=== PATIENT | female | born 1940 | race Caucasian/White ===

== ENCOUNTER → 2016-09-16 | Outpatient (CLI) | payer OTHER, BC ==
[~2016-09-16] MED LIST: ALLOPURINOL300 MG PO; AMLODIPINE BESY10 MG PO; ATORVASTATIN CA20 MG PO; LO-DOSE ASPIRIN81 M2 PO; METOPROLOL TART50 MG PO; PERCOCET 5/31 TABLET PO; TRAMADOL HCL50 MG PO; VITAMIN D2000 UNI1 PO
== END | disposition home or self-care (01) ==
LOC: RAD 12:26
DX: M85.852 Other specified disorders of bone density and structure, left thigh (principal)
CPT/HCPCS: 73552

== ENCOUNTER 2017-08-12 17:31 | Inpatient (IN) | payer OTHER, BC ==
[~2017-08-12] VITALS: Ht 170.2 cm; Wt 66.4 kg
[2017-08-12 18:28] LABS: BASOPHIL (%) 0.2 % (0-1); EOSINOPHIL (%) 0.3 % (0-5); HEMATOCRIT 34.9 % (36.0-46.0); HEMOGLOBIN 12.4 G/DL (11.9-15.5); IMMATURE GRANULOCYTE (%) 0.2 % (0.0-0.7); LYMPHOCYTE (%) 19.6 % (15-42); LYMPHOCYTE COUNT 1.3 K/uL (1.0-2.8); MCH 32.9 PG (29.0-34.0); MCHC 35.5 G/DL (30.0-36.0); MCV 92.6 FL (83-99); MONOCYTE (%) 7.1 % (3-12); MONOCYTE COUNT 0.5 K/uL (0-0.8); NEUTROPHIL (%) 72.6 % (45-76); NEUTROPHIL COUNT 4.6 K/uL (1.8-6.4); PLATELET COUNT 162 K/uL (156-360); RBC DIS.WIDTH-CV 12.2 % (11.8-14.6); RBC DIS.WIDTH-SD 41.7 % (39-53); RED BLOOD COUNT 3.77 M/uL (3.80-5.20); WHITE BLOOD COUNT 6.4 K/uL (4.1-10.2)
[2017-08-12 18:36] LABS: CHLORIDE 97 mEq/L (99-109); POTASSIUM 4.3 mEq/L (3.7-5.4); SODIUM 131 mEq/L (136-147)
[2017-08-12 18:38] LABS: GLUCOSE 103 mg/dL (70-99); PTT 28.4 SEC (25-37)
[2017-08-12 18:42] LABS: CREATININE 1.2 mg/dL (0.6-1.3); GFR ESTIMATE (CALCULATED) 46 mL/min/
[2017-08-12 18:43] LABS: UREA NITROGEN (BUN) 25 mg/dL (9-23)
[2017-08-12 19:06] LABS: HDL CHOLESTEROL 60 MG/DL (Desirable>=50); LDL CHOLESTEROL 62 mg/dL (Desirable<100); NON-HDL CHOLESTEROL 74 mg/dL (Desirable<160); TOTAL CHOLESTEROL 134 mg/dL (Desirable<200); TRIGLYCERIDES 61 MG/DL (Normal: <150)
[2017-08-12 20:51] LABS: TROP-I INTERPRETATION NEGATIVE; TROPONIN-I 0.05 ng/mL (0.0-0.30)
[2017-08-12 21:22] LABS: MAGNESIUM 2.1 mg/dl (1.3-2.7)
[2017-08-12 22:26] VITALS: BP 196/84
[2017-08-12 22:27] LABS: ACETAMINOPHEN (TYLENOL) < 10 MCG/ML (10-30); SERUM ETHYL ALCOHOL < 10 mg/dL
[2017-08-13 02:46] LABS: APPEARANCE CLEAR ((CLEAR)); BILIRUBIN NEGATIVE; BLOOD NEGATIVE; COLOR YELLOW ((YELLOW)); GLUCOSE (STRIP) NEGATIVE; KETONES NEGATIVE; LEUKOCYTES TRACE; NITRITE NEGATIVE; PROTEIN (STRIP) 30; SPECIFIC GRAVITY 1.019 (1.000-1.030); UROBILINOGEN 0.2 MG/DL (0.2-1.0)
[2017-08-13 02:51] LABS: BACTERIA NONE SEEN /HPF; EPITHELIAL CELLS RARE /HPF; MUCUS NONE SEEN /LPF; RED BLOOD CELLS NONE SEEN /HPF (0-5); UCUL ADDED? NO; WHITE BLOOD CELLS 0-5 /HPF (0-5)
[2017-08-13 04:35] LABS: BENZODIAZEPINES, URINE SCREEN Negative (200 ng/mL)
[2017-08-13 07:27] VITALS: BP 181/81
[2017-08-13 09:12] LABS: HEMOGLOBIN A1c (GLYCOHEMOGLOB) 5.2 % (Below 5.7)
[2017-08-13 11:14] VITALS: BP 151/76
[2017-08-13] MEDS ORDERED: METOPROLOL TART50 MG PO (12:40)
[2017-08-13] MEDS ORDERED: ATORVASTATIN CA10 MG PO (12:40)
[2017-08-13] MEDS ORDERED: DICYCLOMINE HCL20 MG PO (12:41)
[2017-08-13] MEDS ORDERED: TRAMADOL HCL50 MG PO (12:41)
[2017-08-13] MEDS ORDERED: AMLODIPINE BESY10 MG PO (12:42)
[2017-08-13] MEDS ORDERED: VALSARTAN-HCTZ1 EAC3 PO (12:43)
[2017-08-13] MEDS ORDERED: DESIPRAMINE HCL25 MG PO (12:44)
[2017-08-13] MEDS ORDERED: QUESTRAN PACKET4 GM PO (12:44)
[2017-08-13] MEDS ORDERED: ALLOPURINOL300 MG PO (12:45)
[2017-08-13 15:08] VITALS: BP 144/83
[2017-08-13 19:26] VITALS: BP 194/75
[2017-08-13 23:33] VITALS: BP 178/70
[2017-08-14 04:07] VITALS: BP 172/70
[2017-08-14 07:30] VITALS: BP 182/80
[2017-08-14 11:08] VITALS: BP 204/80
[2017-08-14 15:21] LABS: C DIFF TOXIN NEGATIVE (NEGATIVE)
[2017-08-14 15:38] VITALS: BP 171/72
[2017-08-14 19:04] VITALS: BP 179/77
[2017-08-15 00:41] VITALS: BP 150/52
[2017-08-15 04:39] VITALS: BP 178/68
[2017-08-15 07:46] VITALS: BP 188/58
[2017-08-15 09:23] VITALS: BP 148/58
[2017-08-15 12:00] VITALS: BP 140/58
[2017-08-15 12:07] LABS: CHLORIDE 100 MEQ/L (99-109); GFR ESTIMATE (CALCULATED) 29 mL/min/; GLUCOSE 143 mg/dL (70-99); POTASSIUM 3.7 MEQ/L (3.7-5.4); SODIUM 130 MEQ/L (136-147); UREA NITROGEN (BUN) 31 mg/dL (9-23)
[2017-08-15 12:14] LABS: CREATININE 1.8 MG/DL (0.6-1.3)
[2017-08-15] MEDS ORDERED: FOLIC ACID1 MG PO (12:43)
[2017-08-15] MEDS ORDERED: LOPRESSOR50 MG PO (12:43)
[2017-08-15] MEDS ORDERED: THERAGRAN1 TABLET PO (12:43)
[2017-08-15] MEDS ORDERED: APRESOLINE25 MG PO (12:43)
[2017-08-15] MEDS ORDERED: ASPIR-LOW81 MG PO (12:43)
[2017-08-15] MEDS ORDERED: Thiamine,Vitamin B1 PO (12:43)
[2017-08-15] MEDS ORDERED: ATORVASTATIN CA80 MG PO (12:43)
[2017-08-15] MEDS ORDERED: ATIVAN0.5 MG PO (12:43)
== END 2017-08-15 13:45 | disposition home or self-care (01) | DRG 69 ==
LOC: EME 17:31 → 5SOUTH 19:55 → EDOF 19:55 → ENRESERV 19:57 → 5SOUTH 22:19 → ENPENDDIS 08-15 → 5SOUTH 08-15 13:45
PROVIDERS: Emergency Medicine; Hospitalist; Internal Medicine
DX: G45.9 Transient cerebral ischemic attack, unspecified (principal); R47.01 Aphasia; F10.230 Alcohol dependence with withdrawal, uncomplicated; E86.0 Dehydration; I10 Essential (primary) hypertension; F32.9 Major depressive disorder, single episode, unspecified; M10.9 Gout, unspecified; E78.5 Hyperlipidemia, unspecified; K58.9 Irritable bowel syndrome, unspecified; Z85.43 Personal history of malignant neoplasm of ovary
CPT/HCPCS: 70450; 70496; 70498; 70551; 80048; 80061; 80306 90; 81003; 83036; 83735; 84484; 85025; 85610; 85730; 87493; 92523 GN; 93306; 97127 GN; 99281; 99285; G0480; J0360; J7030

== ENCOUNTER 2017-09-09 14:05 | Inpatient (IN) | payer OTHER, BC ==
[~2017-09-09] VITALS: Ht 165.1 cm; Wt 64.9 kg
[~2017-09-09 14:05] MED LIST changes: +APRESOLINE25 MG PO; +ASPIR-LOW81 MG PO; +ATIVAN0.5 MG PO; +ATORVASTATIN CA10 MG PO; +ATORVASTATIN CA80 MG PO; +DESIPRAMINE HCL25 MG PO; +DICYCLOMINE HCL20 MG PO; +FOLIC ACID1 MG PO; +LOPRESSOR50 MG PO; +MULTIVITAMIN1 EAC2 PO; +QUESTRAN PACKET4 GM PO; +THERAGRAN1 TABLET PO; +Thiamine,Vitamin B1 PO; +VALSARTAN-HCTZ1 EAC3 PO; +VITAMIN B-1250 MG PO
[2017-09-09 15:11] LABS: HEMATOCRIT 21.9 % (36.0-46.0); HEMOGLOBIN 7.5 G/DL (11.9-15.5); MCH 31.8 PG (29.0-34.0); MCHC 34.2 G/DL (30.0-36.0); MCV 92.8 FL (83-99); PLATELET COUNT 300 K/uL (156-360); RBC DIS.WIDTH-CV 14.6 % (11.8-14.6); RBC DIS.WIDTH-SD 48.9 % (39-53); RED BLOOD COUNT 2.36 M/uL (3.80-5.20)
[2017-09-09 15:23] LABS: CHLORIDE 89 mEq/L (99-109); POTASSIUM 4.1 mEq/L (3.7-5.4); SODIUM 122 mEq/L (136-147)
[2017-09-09 15:24] LABS: GLUCOSE 111 mg/dL (70-99)
[2017-09-09 15:28] LABS: GFR ESTIMATE (CALCULATED) 16 mL/min/
[2017-09-09 15:29] LABS: UREA NITROGEN (BUN) 73 mg/dL (9-23)
[2017-09-09 15:36] LABS: TROP-I INTERPRETATION NEGATIVE; TROPONIN-I 0.05 ng/mL (0.0-0.30)
[2017-09-09] MEDS ORDERED: NORVASC5 MG PO (16:25)
[2017-09-09] MEDS ORDERED: K-DUR20 MEQ PO (16:27)
[2017-09-09] MEDS ORDERED: LASIX80 MG PO (16:28)
[2017-09-09] MEDS ORDERED: ALBUTEROL2.5 MG/3 M IH (16:30)
[2017-09-09] MEDS ORDERED: METOLAZONE10 MG PO (16:31)
[2017-09-09 18:56] LABS: INTER. NORMALIZED RATIO 1.1
[2017-09-09 18:58] LABS: PTT 31.2 SEC (25-37)
[2017-09-09 20:06] VITALS: BP 168/74
[2017-09-09 21:54] VITALS: BP 165/67
[2017-09-09 22:25] VITALS: BP 150/60
[2017-09-09 23:40] VITALS: BP 155/85
[2017-09-10] VITALS (14 sets, daily range): BP systolic 130–174; BP diastolic 58–78
[2017-09-10 02:28] LABS: HEMATOCRIT 22.1 % (36.0-46.0); HEMOGLOBIN 7.7 G/DL (11.9-15.5); MCV 90.2 FL (83-99)
[2017-09-10 06:17] LABS: HEMATOCRIT 21.9 % (36.0-46.0); HEMOGLOBIN 7.5 G/DL (11.9-15.5); MCHC 34.2 G/DL (30.0-36.0); MCV 90.5 FL (83-99); PLATELET COUNT 277 K/uL (156-360); RBC DIS.WIDTH-CV 14.5 % (11.8-14.6); RBC DIS.WIDTH-SD 47.7 % (39-53); RED BLOOD COUNT 2.42 M/uL (3.80-5.20); WHITE BLOOD COUNT 5.2 K/uL (4.1-10.2)
[2017-09-10 06:41] LABS: ALBUMIN 3.1 G/DL (3.2-4.8); ALKALINE PHOSPHATASE 96 IU/L (3-129); ALT (GPT) 20 IU/L (3-49); AST (GOT) 20 IU/L (2-34); CHLORIDE 88 MEQ/L (99-109); DIRECT BILIRUBIN 0.2 mg/dL (0.0-0.3); GFR ESTIMATE (CALCULATED) 20 mL/min/; GLUCOSE 100 mg/dL (70-99); POTASSIUM 3.4 MEQ/L (3.7-5.4); SODIUM 122 MEQ/L (136-147); TOTAL BILIRUBIN 0.7 MG/DL (0.0-1.0); TOTAL PROTEIN 5.8 G/DL (6.4-8.3); UREA NITROGEN (BUN) 72 mg/dL (9-23)
[2017-09-10 06:43] LABS: CREATININE 2.5 MG/DL (0.6-1.3)
[2017-09-10 13:17] LABS: BASE EXCESS -2.1 mEq/L (-3 to +3); BICARBONATE 21.3 mEq/L (22-26); CARBOXY HGB 2.5 % (0-5); METHEMOGLOBIN 1.1 % (0-1.5); PCO2 30 mm Hg (35-45); PO2 90 mm Hg (80-100); pH 7.46 (7.35-7.45)
[2017-09-10 13:18] LABS: COMMENTS - BLOOD GASES A+C+; DEVICE NC; O2 FLOW 2 L/MIN; SITE RR
[2017-09-10 21:00] LABS: STOOL OCCULT BLD 1ST SPECIMEN NEGATIVE
[2017-09-11 04:38] VITALS: BP 178/68
[2017-09-11 06:05] VITALS: BP 184/115
[2017-09-11 06:43] LABS: HEMATOCRIT 29.1 % (36.0-46.0); HEMOGLOBIN 10.1 G/DL (11.9-15.5); MCH 29.8 PG (29.0-34.0); MCHC 34.7 G/DL (30.0-36.0); MCV 85.8 FL (83-99); PLATELET COUNT 296 K/uL (156-360); RBC DIS.WIDTH-CV 17.4 % (11.8-14.6); RBC DIS.WIDTH-SD 55.1 % (39-53); RED BLOOD COUNT 3.39 M/uL (3.80-5.20); WHITE BLOOD COUNT 8.6 K/uL (4.1-10.2)
[2017-09-11 07:06] LABS: CHLORIDE 88 MEQ/L (99-109); CREATININE 2.3 MG/DL (0.6-1.3); GFR ESTIMATE (CALCULATED) 22 mL/min/; GLUCOSE 98 mg/dL (70-99); POTASSIUM 3.4 MEQ/L (3.7-5.4); SODIUM 123 MEQ/L (136-147); UREA NITROGEN (BUN) 72 mg/dL (9-23)
[2017-09-11 07:28] VITALS: BP 159/73
[2017-09-11 12:07] LABS: CREATINE KINASE 49 IU/L (1-294)
[2017-09-11 19:27] VITALS: BP 135/76
[2017-09-11 23:22] VITALS: BP 140/64
[2017-09-12 03:47] VITALS: BP 139/68
[2017-09-12 06:36] LABS: BASOPHIL (%) 0.6 % (0-1); EOSINOPHIL (%) 1.9 % (0-5); EOSINOPHIL COUNT 0.1 K/uL (0-0.3); HEMATOCRIT 28.7 % (36.0-46.0); IMMATURE GRANULOCYTE (%) 0.2 % (0.0-0.7); LYMPHOCYTE (%) 8.7 % (15-42); LYMPHOCYTE COUNT 0.4 K/uL (1.0-2.8); MCH 30.2 PG (29.0-34.0); MCHC 34.8 G/DL (30.0-36.0); MCV 86.7 FL (83-99); MONOCYTE (%) 9.9 % (3-12); MONOCYTE COUNT 0.5 K/uL (0-0.8); NEUTROPHIL (%) 78.7 % (45-76); NEUTROPHIL COUNT 3.7 K/uL (1.8-6.4); NRBC (%) 0.4 /100 WBC (0-0); PLATELET COUNT 257 K/uL (156-360); RBC DIS.WIDTH-CV 17.2 % (11.8-14.6); RBC DIS.WIDTH-SD 54.9 % (39-53); RED BLOOD COUNT 3.31 M/uL (3.80-5.20); WHITE BLOOD COUNT 4.7 K/uL (4.1-10.2)
[2017-09-12 07:13] LABS: CHLORIDE 89 MEQ/L (99-109); CREATININE 2.7 MG/DL (0.6-1.3); GFR ESTIMATE (CALCULATED) 18 mL/min/; GLUCOSE 106 mg/dL (70-99); MAGNESIUM 2.1 mg/dl (1.3-2.7); PHOSPHORUS 5.3 mg/dL (2.5-4.9); POTASSIUM 3.8 MEQ/L (3.7-5.4); SODIUM 123 MEQ/L (136-147); UREA NITROGEN (BUN) 78 mg/dL (9-23)
[2017-09-12 07:53] VITALS: BP 164/50
[2017-09-12 11:44] VITALS: BP 132/48
[2017-09-12 16:00] VITALS: BP 144/48
[2017-09-12 19:55] VITALS: BP 151/55
[2017-09-13] VITALS (7 sets, daily range): BP systolic 122–165; BP diastolic 42–72
[2017-09-13 06:29] LABS: ALBUMIN 3.2 G/DL (3.2-4.8); CHLORIDE 88 MEQ/L (99-109); CREATININE 2.8 MG/DL (0.6-1.3); GFR ESTIMATE (CALCULATED) 17 mL/min/; GLUCOSE 112 mg/dL (70-99); PHOSPHORUS 6.1 mg/dL (2.5-4.9); POTASSIUM 3.7 MEQ/L (3.7-5.4); SODIUM 122 MEQ/L (136-147); UREA NITROGEN (BUN) 86 mg/dL (9-23)
[2017-09-14 06:33] LABS: ALBUMIN 3.3 G/DL (3.2-4.8); CHLORIDE 88 MEQ/L (99-109); CREATININE 2.4 MG/DL (0.6-1.3); GFR ESTIMATE (CALCULATED) 21 mL/min/; GLUCOSE 124 mg/dL (70-99); PHOSPHORUS 5.6 mg/dL (2.5-4.9); POTASSIUM 3.3 MEQ/L (3.7-5.4); SODIUM 120 MEQ/L (136-147); UREA NITROGEN (BUN) 87 mg/dL (9-23)
[2017-09-14 07:24] VITALS: BP 149/67
[2017-09-14 11:01] VITALS: BP 168/75
[2017-09-14 15:46] LABS: Metanephrine,Plasma 47 pg/mL (<=57)
[2017-09-14 18:36] LABS: CHLORIDE 93 MEQ/L (99-109); GFR ESTIMATE (CALCULATED) 26 mL/min/; GLUCOSE 106 mg/dL (70-99); POTASSIUM 3.4 MEQ/L (3.7-5.4); SODIUM 124 MEQ/L (136-147); UREA NITROGEN (BUN) 85 mg/dL (9-23)
[2017-09-14 19:02] VITALS: BP 136/62
[2017-09-14 21:08] LABS: CHLORIDE 96 MEQ/L (99-109); POTASSIUM 3.4 MEQ/L (3.7-5.4); SODIUM 128 MEQ/L (136-147)
[2017-09-14 21:14] LABS: GFR ESTIMATE (CALCULATED) 26 mL/min/; GLUCOSE 154 mg/dL (70-99); UREA NITROGEN (BUN) 76 mg/dL (9-23)
[2017-09-15] VITALS (8 sets, daily range): BP systolic 114–160; BP diastolic 44–70
[2017-09-15 00:50] LABS: CHLORIDE 97 mEq/L (99-109); POTASSIUM 3.3 mEq/L (3.7-5.4); SODIUM 130 mEq/L (136-147)
[2017-09-15 00:56] LABS: CREATININE 1.9 mg/dL (0.6-1.3); GFR ESTIMATE (CALCULATED) 27 mL/min/
[2017-09-15 00:57] LABS: UREA NITROGEN (BUN) 76 mg/dL (9-23)
[2017-09-15 00:59] LABS: GLUCOSE 98 mg/dL (70-99)
[2017-09-15 04:15] LABS: CHLORIDE 95 mEq/L (99-109); POTASSIUM 3.2 mEq/L (3.7-5.4); SODIUM 126 mEq/L (136-147)
[2017-09-15 04:20] LABS: CREATININE 1.8 mg/dL (0.6-1.3); GFR ESTIMATE (CALCULATED) 29 mL/min/
[2017-09-15 04:21] LABS: UREA NITROGEN (BUN) 68 mg/dL (9-23)
[2017-09-15 04:31] LABS: GLUCOSE 247 mg/dL (70-99)
[2017-09-15 07:19] LABS: HEMATOCRIT 30.3 % (36.0-46.0); HEMOGLOBIN 10.2 G/DL (11.9-15.5); MCH 29.1 PG (29.0-34.0); MCHC 33.7 G/DL (30.0-36.0); MCV 86.6 FL (83-99); PLATELET COUNT 287 K/uL (156-360); RBC DIS.WIDTH-SD 51.1 % (39-53); WHITE BLOOD COUNT 5.5 K/uL (4.1-10.2)
[2017-09-15 07:41] LABS: CHLORIDE 96 MEQ/L (99-109); CREATININE 1.6 MG/DL (0.6-1.3); GFR ESTIMATE (CALCULATED) 33 mL/min/; POTASSIUM 3.7 MEQ/L (3.7-5.4); SODIUM 130 MEQ/L (136-147); UREA NITROGEN (BUN) 61 mg/dL (9-23)
[2017-09-15 07:46] LABS: GLUCOSE 99 mg/dL (70-99)
[2017-09-15 08:34] LABS: BASOPHIL (%) 0.5 % (0-1); EOSINOPHIL (%) 0.5 % (0-5); IMMATURE GRANULOCYTE (%) 0.4 % (0.0-0.7); LYMPHOCYTE (%) 14.8 % (15-42); LYMPHOCYTE COUNT 0.8 K/uL (1.0-2.8); MONOCYTE (%) 12.6 % (3-12); MONOCYTE COUNT 0.7 K/uL (0-0.8); NEUTROPHIL (%) 71.2 % (45-76); NEUTROPHIL COUNT 3.9 K/uL (1.8-6.4); PLAT.SUFFICIENCY ADEQUATE
[2017-09-15 09:26] LABS: CREATININE 1.5 MG/DL (0.6-1.3); GFR ESTIMATE (CALCULATED) 36 mL/min/
[2017-09-15 09:48] LABS: CHLORIDE 95 MEQ/L (99-109); GLUCOSE 100 mg/dL (70-99); MAGNESIUM 1.9 mg/dl (1.3-2.7); POTASSIUM 3.7 MEQ/L (3.7-5.4); SODIUM 130 MEQ/L (136-147); UREA NITROGEN (BUN) 58 mg/dL (9-23)
[2017-09-15 09:52] LABS: PHOSPHORUS 3.3 mg/dL (2.5-4.9)
[2017-09-15 12:38] LABS: CHLORIDE 94 MEQ/L (99-109); CREATININE 1.5 MG/DL (0.6-1.3); GFR ESTIMATE (CALCULATED) 36 mL/min/; GLUCOSE 106 mg/dL (70-99); POTASSIUM 3.6 MEQ/L (3.7-5.4); SODIUM 128 MEQ/L (136-147); UREA NITROGEN (BUN) 52 mg/dL (9-23)
[2017-09-16 03:25] VITALS: BP 149/73
[2017-09-16 05:43] LABS: HEMATOCRIT 30.4 % (36.0-46.0); HEMOGLOBIN 10.2 G/DL (11.9-15.5); MCH 29.4 PG (29.0-34.0); MCHC 33.6 G/DL (30.0-36.0); MCV 87.6 FL (83-99); PLATELET COUNT 273 K/uL (156-360); RBC DIS.WIDTH-SD 51.6 % (39-53); RED BLOOD COUNT 3.47 M/uL (3.80-5.20); WHITE BLOOD COUNT 4.2 K/uL (4.1-10.2)
[2017-09-16 06:09] LABS: ANISOCYTOSIS 1+; BURR CELLS 1+; EOSINOPHIL ABS CT 0; GIANT PLATELETS 1+; LYMPHOCYTES 19.3 % (15.0-45.0); MACROCYTES 1+; MONOCYTES 9.6 % (0-9.0); OVALOCYTES 1+; PLAT.SUFFICIENCY ADEQUATE; SEG.NEUTROPHILS 71.1 % (46.0-76.0); TEAR DROP CELLS 1+
[2017-09-16 06:41] LABS: CHLORIDE 99 MEQ/L (99-109); CREATININE 1.1 MG/DL (0.6-1.3); GFR ESTIMATE (CALCULATED) 51 mL/min/; GLUCOSE 117 mg/dL (70-99); POTASSIUM 3.6 MEQ/L (3.7-5.4); SODIUM 133 MEQ/L (136-147); UREA NITROGEN (BUN) 34 mg/dL (9-23)
[2017-09-16 07:02] LABS: MAGNESIUM 1.6 mg/dl (1.3-2.7); PHOSPHORUS 1.9 mg/dL (2.5-4.9)
[2017-09-16 08:00] VITALS: BP 174/79
[2017-09-16 11:01] LABS: RENIN ACTIVITY 21.81 ng/mL/h (0.25-5.82)
[2017-09-16 12:00] VITALS: BP 162/74
[2017-09-16] MEDS ORDERED: SPIRIVA RESPIMAT4 GM IH (15:23)
[2017-09-16] MEDS ORDERED: LABETALOL HCL100 MG PO (15:24)
[2017-09-16] MEDS ORDERED: NIFEDIPINE ER30 MG PO (15:24)
[2017-09-16] MEDS ORDERED: CLOPIDOGREL75 MG PO (15:24)
== END 2017-09-16 16:22 | disposition home or self-care (01) | DRG 682 ==
LOC: EME 14:05 → 5SOUTH 16:57 → EDOF 16:57 → ENRESERV 17:01 → 5SOUTH 19:36 → ENRESERV 09-15 02:45 → 4EAST 09-15 04:53
PROVIDERS: Emergency Medicine; Family Medicine; Hospitalist; Internal Medicine; Internal Medicine Nephrology; Internal Medicine Pulmonary Disease; Physician Assistant Medical
DX: N17.9 Acute kidney failure, unspecified (principal); J96.01 Acute respiratory failure with hypoxia; I70.1 Atherosclerosis of renal artery; I50.33 Acute on chronic diastolic (congestive) heart failure; J18.9 Pneumonia, unspecified organism; N28.0 Ischemia and infarction of kidney; I13.0 Hypertensive heart and chronic kidney disease with heart failure and stage 1 through stage 4 chronic kidney disease, or unspecified chronic kidney disease; N18.3 Chronic kidney disease, stage 3 (moderate); E78.5 Hyperlipidemia, unspecified; E87.1 Hypo-osmolality and hyponatremia; R09.02 Hypoxemia; I70.0 Atherosclerosis of aorta; F10.10 Alcohol abuse, uncomplicated; I27.20 Pulmonary hypertension, unspecified; I05.0 Rheumatic mitral stenosis; D63.1 Anemia in chronic kidney disease; E87.6 Hypokalemia; K58.9 Irritable bowel syndrome, unspecified; I48.91 Unspecified atrial fibrillation; N27.0 Small kidney, unilateral; I16.1 Hypertensive emergency; D63.8 Anemia in other chronic diseases classified elsewhere; Z86.73 Personal history of transient ischemic attack (TIA), and cerebral infarction without residual deficits; Z85.43 Personal history of malignant neoplasm of ovary; Z79.82 Long term (current) use of aspirin; Z79.84 Long term (current) use of oral hypoglycemic drugs; Z87.891 Personal history of nicotine dependence
CPT/HCPCS: 36415; 36600; 71045; 71046; 80048; 80048 91; 80053; 80069; 80076; 81003; 82088 90; 82272; 82550; 82803; 82948; 83735; 83835 90; 83930; 83935; 84100; 84244 90; 84295; 84300; 84484; 85014; 85018; 85025; 85027; 85610; 85730; 86850; 86900; 86901; 86920; 93005; 94010; 94640; 94640 76; 94760; 94799; 99202; 99281; 99285; C1725; C1760; C1769; C1874; C1894; J0360; J1644; J1940; J2250; J2597; J3010; J3480; J7030; J7040; J7070; P9016; S0020

== ENCOUNTER 2017-09-25 11:35 | Emergency (ER) | payer OTHER, BC ==
[~2017-09-25] VITALS: Ht 172.7 cm; Wt 60.3 kg
[~2017-09-25 11:35] MED LIST changes: +ALBUTEROL2.5 MG/3 M IH; +CLOPIDOGREL75 MG PO; +K-DUR20 MEQ PO; +LABETALOL HCL100 MG PO; +LASIX80 MG PO; +METOLAZONE10 MG PO; +NIFEDIPINE ER30 MG PO; +NORVASC5 MG PO; +SPIRIVA RESPIMAT4 GM IH
[2017-09-25 12:56] VITALS: BP 144/64
== END 2017-09-25 12:58 | disposition home or self-care (01) ==
LOC: EME 11:35
DX: S61.011A Laceration without foreign body of right thumb without damage to nail, initial encounter (principal); S01.511A Laceration without foreign body of lip, initial encounter; S80.01XA Contusion of right knee, initial encounter; W01.0XXA Fall on same level from slipping, tripping and stumbling without subsequent striking against object, initial encounter; Y92.512 Supermarket, store or market as the place of occurrence of the external cause; Z79.82 Long term (current) use of aspirin; M85.80 Other specified disorders of bone density and structure, unspecified site; E78.5 Hyperlipidemia, unspecified; I10 Essential (primary) hypertension; F32.9 Major depressive disorder, single episode, unspecified; K21.9 Gastro-esophageal reflux disease without esophagitis; F41.9 Anxiety disorder, unspecified; M10.9 Gout, unspecified; Z85.43 Personal history of malignant neoplasm of ovary; Z86.73 Personal history of transient ischemic attack (TIA), and cerebral infarction without residual deficits; Z87.891 Personal history of nicotine dependence
CPT/HCPCS: 73564; 99281; 99283

== ENCOUNTER 2017-09-28 12:46 | Emergency (ER) | payer OTHER, BC ==
[~2017-09-28] VITALS: Ht 172.7 cm; Wt 59.9 kg
[2017-09-28 14:53] VITALS: BP 177/68
== END 2017-09-28 14:55 | disposition home or self-care (01) ==
LOC: EME 12:46
PROC: 0HQ0XZZ Repair Scalp Skin, External Approach (ICD-10-PCS; principal; 2017-09-28)
DX: S01.01XA Laceration without foreign body of scalp, initial encounter (principal); W18.30XA Fall on same level, unspecified, initial encounter; Z79.02 Long term (current) use of antithrombotics/antiplatelets; Z79.82 Long term (current) use of aspirin; E78.5 Hyperlipidemia, unspecified; I10 Essential (primary) hypertension; F32.9 Major depressive disorder, single episode, unspecified; K21.9 Gastro-esophageal reflux disease without esophagitis; F41.9 Anxiety disorder, unspecified; Z85.43 Personal history of malignant neoplasm of ovary; M10.9 Gout, unspecified; Z87.891 Personal history of nicotine dependence
CPT/HCPCS: 70450; 99281; 99284